=== PATIENT | male | born 1985 | race Caucasian/White ===

== ENCOUNTER 2020-09-30 10:06 | Emergency (ER) | payer OTHER ==
[~2020-09-30] VITALS: Ht 180.3 cm; Wt 79.4 kg
[2020-09-30] MEDS ORDERED: CEPHALEXIN500 M1 PO (11:58)
== END 2020-09-30 12:01 | disposition home or self-care (01) ==
LOC: ED 10:06
DX: S61.411A Laceration without foreign body of right hand, initial encounter (principal); W26.8XXA Contact with other sharp object(s), not elsewhere classified, initial encounter; Y93.89 Activity, other specified; Y92.89 Other specified places as the place of occurrence of the external cause; Y99.8 Other external cause status

== ENCOUNTER 2020-10-20 07:30 | Emergency (ER) | payer SELFPAY ==
[~2020-10-20 07:30] MED LIST: CEPHALEXIN500 M1 PO
[2020-10-20 08:08] LABS: BASO % 0.6 % (0.0-1.0); EOS # 0.4 10*3/uL (0.0-0.4); EOS % 6.1 % (1.0-4.0); HEMATOCRIT 35.5 % (42.0-52.0); LYMPH # 1.6 10*3/uL (1.3-4.4); LYMPH % 25.2 % (27.0-41.0); MEAN CELL VOLUME 86.8 fl (80.0-94.0); MEAN CORPUSCULAR HGB 28.6 pg (27.0-31.0); MEAN PLATELET VOLUME 9.2 fl (9.6-12.3); MONO # 0.7 10*3/uL (0.1-1.0); MONO % 11.2 % (3.0-9.0); NEUT # 3.5 10*3/uL (2.3-7.9); NEUT % 56.9 % (47.0-73.0); PLATELET COUNT AUTOMATED 388 10*3/uL (130-400); RED BLOOD COUNT 4.09 10*6/uL (4.50-5.90); RED CELL DISTRI WIDTH 14.5 % (0-14.5); WHITE BLOOD COUNT 6.2 10*3/uL (4.8-10.8)
[2020-10-20 08:24] LABS: ALBUMIN 3.7 gm/dl (3.1-4.5); ALKALINE PHOSPHATASE 58 U/L (45-117); BUN 16 mg/dl (7-24); CHLORIDE 107 mmol/L (98-107); CREATININE 0.99 mg/dL (0.70-1.30); POTASSIUM 3.9 mmol/L (3.5-5.1); SGOT/AST 36 IU/L (3-35); SGPT/ALT 66 U/L (12-78); SODIUM 141 mmol/L (136-145)
== END 2020-10-20 08:38 | disposition home or self-care (01) ==
LOC: ED 07:30
PROVIDERS: Internal Medicine
DX: S61.411D Laceration without foreign body of right hand, subsequent encounter (principal); R20.0 Anesthesia of skin; R20.2 Paresthesia of skin; Z79.2 Long term (current) use of antibiotics; X58.XXXD Exposure to other specified factors, subsequent encounter